=== PATIENT | female | born 1965 | race Caucasian/White ===

== ENCOUNTER → 2017-10-21 07:07 | Outpatient (CLI) | payer OTHER, SELFPAY ==
--- NOTE | 2017-10-21 07:26 | BI_ITS ---
MAMMOGRAPHY - BILATERAL SCREENING REASON FOR EXAM: Female, 51 years old. Routine annual screening examination. PERTINENT HISTORY: Grandmother with breast cancer. Aunt with breast cancer. History of prior bilateral breast reduction. TECHNIQUE: Digital bilateral breast zechariah (3D mammographic acquisition) in the CC and MLO projections. 2-D mediolateral oblique (MLO) and craniocaudad (CC) views of both breasts were obtained. CAD: Full Field Digital Mammography with Computer Added Detection was performed. COMPARISON: Comparison is made with prior study dated September 09, 2016. FINDINGS: Breast Composition: The breasts are heterogeneously dense, which may obscure small masses. There are no dominant masses or suspicious calcifications. Stable benign-appearing bilateral axillary lymph nodes. No other significant abnormalities are identified. There has been no significant change since the prior study. BI/SCREENING MAMM (CAD), BILAT IMPRESSION: Stable bilateral screening mammogram. Yearly follow-up mammogram recommended. (A) ASSESSMENT CATEGORY: BIRADS Category 2: Benign. A letter regarding these results will be sent to the patient by the facility within 30 days. Approximately 10% of breast cancers are not detected by mammography. A normal mammogram should not delay biopsy of a clinically suspicious abnormality. [id number] Electronically Signed: Deepak Roche MD at 8:21 EDT Tel [phone], Service support ,
== END ==
PROVIDERS: Family Provider Family Medicine; PCP Family Medicine
DX: Z12.31 Encounter for screening mammogram for malignant neoplasm of breast (principal)
CPT/HCPCS: 77063; 77067

== ENCOUNTER → 2018-02-10 09:44 | Outpatient (CLI) | payer OTHER, SELFPAY ==
[2018-02-10 12:25] LABS: Basophil# 0.07 X10^3/uL; Eosinophil# 0.22 X10^3/uL; Eosinophils% 3.2 % (0-5); Hematocrit 39.1 % (37-47); Hemoglobin 12.7 g/dl (12.0-15.0); Lymphocyte % 27.2 % (19-41); Mean Corp Hgb Conc 32.5 g/gl (32-36); Mean Corpuscular Hgb 29.1 pg (27.0-32.0); Mean Corpuscular Volume 89.5 fL (81-99); Mean Platelet Vol. 12.2 fl (6.2-12.0); Monocyte# 0.73 X10^3/uL; Monocyte% 10.5 % (0-10); Neutrophil # 4.04 X10^3/uL (2.7-7.7); Neutrophil % 57.8 % (47-70); Platelet Count 246 K/mm3 (150-450); RBC Distribution Width CV 12.9 % (11.6-14.6); RBC Distribution Width SD 41.9 fl (35.1-43.9); Red Blood Count 4.37 M/mm3 (4.2-5.4)
[2018-02-10 12:39] LABS: POSITIVE COUNT NO; POSITIVE DIFFERENTIAL NO; POSITIVE MORPHOLOGY NO
[2018-02-10 12:59] LABS: ALB/GLOB Ratio 1.1 RATIO (0.9-2.4); AST(SGOT) 13 U/L (15-37); Alanine Aminotransfer ALT/SGPT 21 U/L (13-56); Albumin, Serum 3.8 g/dL (3.2-5.0); Alkaline Phosphatase 73 U/L (45-117); Anion Gap 7 (5-15); BUN 20 mg/dL (7-18); BUN/Creat Ratio 25.2 RATIO (10-20); Calcium,Total 8.8 mg/dL (8.5-10.1); Chloride 103 mmol/L (98-107); Cholesterol 193 mg/dL (200); EST Glomerular Filtration Rate 81 mL/min (>60); Est Glom Filt Rate - Afr Amer 98 mL/min (>60); Globulin 3.5 g/dL (2.2-4.2); Glucose 77 mg/dL (74-106); High Density Lipoprotein 74 mg/dL; Potassium 4.5 mmol/L (3.5-5.1); Protein, Total 7.3 g/dL (6.4-8.2); Sodium Level 138 mmol/L (136-145); T4 Free Direct 0.95 ng/dL (0.76-1.46); Thyroid Stim Hormone (TSH) 1.67 uIU/mL (0.358-3.74); Triglycerides 88 mg/dL; Very Low Density Lipoprotein 18 mg/dL (5-40)
== END ==
PROVIDERS: Family Provider Family Medicine; PCP Family Medicine; Referring Provider Family Medicine; Visit Provider Family Medicine
DX: Z00.00 Encounter for general adult medical examination without abnormal findings (principal); F41.9 Anxiety disorder, unspecified
CPT/HCPCS: 36415; 80053; 80061; 84439; 84443; 85025

== ENCOUNTER → 2019-02-23 | Outpatient (CLI) | payer OTHER, SELFPAY ==
--- NOTE | 2019-02-23 08:24 | BI_ITS ---
MAMMOGRAPHY - BILATERAL SCREENING REASON FOR EXAM: Female, 53 years old. Routine annual screening examination. PERTINENT HISTORY: Grandmother with breast cancer. Aunt with breast cancer. History of prior bilateral breast reduction surgery. TECHNIQUE: Digital bilateral breast charissa (3D mammographic acquisition) in the CC and MLO projections. 2-D mediolateral oblique (MLO) and craniocaudad (CC) views of both breasts were obtained. CAD: Full Field Digital Mammography with Computer Added Detection was performed. COMPARISON: Comparison is made with prior examination of October 21, 2017 and September 09, 2016. FINDINGS: Breast Composition: The breasts are heterogeneously dense, which may obscure small masses. There are no dominant masses or suspicious calcifications. Stable benign-appearing bilateral axillary lymph nodes. No other significant abnormalities are identified. There has been no significant change since the prior study. BI/SCREEN MAMM (CAD) W/CHARISSA BILAT IMPRESSION: Stable bilateral screening mammogram. Yearly follow-up mammogram recommended. (A) ASSESSMENT CATEGORY: BIRADS Category 2: Benign. A letter regarding these results will be sent to the patient by the facility within 30 days. Approximately 10% of breast cancers are not detected by mammography. A normal mammogram should not delay biopsy of a clinically suspicious abnormality. [id number] Electronically Signed: Deepak Roche, at 9:37 EST , Service support ,
== END | disposition home or self-care (01) ==
PROVIDERS: Family Provider Family Medicine; PCP Family Medicine
DX: Z12.31 Encounter for screening mammogram for malignant neoplasm of breast (principal)
CPT/HCPCS: 77063; 77067

== ENCOUNTER → 2019-09-18 | Outpatient (CLI) | payer OTHER, SELFPAY ==
[2019-09-18 10:00] LABS: Absolute Lymphocyte Count 1.63 X10^3/uL (0.83-4.51); Absolute Neutrophil Count 2.4 X10^3/uL (2.0-7.7); Basophil# 0.04 X10^3/uL; Basophil% 0.8 % (0-1); Eosinophil# 0.11 X10^3/uL; Eosinophils% 2.3 % (0-5); Hematocrit 40.9 % (37-47); Hemoglobin 12.6 g/dL (12.0-15.0); Lymphocyte # 1.63 X10^3/ul (4.0); Lymphocyte % 34.2 % (19-41); Mean Corp Hgb Conc 30.8 g/dL (32-36); Mean Corpuscular Hgb 28.8 pg (27.0-32.0); Mean Corpuscular Volume 93.6 fL (81-99); Mean Platelet Vol. 11.2 fl (6.2-12.0); Monocyte# 0.58 X10^3/uL; Monocyte% 12.2 % (0-10); NRBC Flagged by Analyzer 0 % (0-5); Neutrophil # 2.38 X10^3/uL (2.7-7.7); Neutrophil % 50.1 % (47-70); Platelet Count 203 K/mm3 (150-450); RBC Distribution Width CV 12.7 % (11.6-14.6); RBC Distribution Width SD 43.5 fl (35.1-43.9); Red Blood Count 4.37 M/mm3 (4.2-5.4); White Blood Count 4.8 K/mm3 (4.4-11.0)
[2019-09-18 10:41] LABS: AST(SGOT) 14 U/L (15-37); Alanine Aminotransfer ALT/SGPT 25 U/L (13-56); Albumin, Serum 3.8 g/dL (3.2-5.0); Alkaline Phosphatase 97 U/L (45-117); Anion Gap 6 (5-15); BUN 21 mg/dL (7-18); BUN/Creat Ratio 27.7 RATIO (10-20); Chloride 104 mmol/L (98-107); Cholesterol 199 mg/dL (200); Creatinine, Serum 0.76 mg/dL (0.55-1.02); EST Glomerular Filtration Rate 85 mL/min (>60); Est Glom Filt Rate - Afr Amer 103 mL/min (>60); Ferritin 22 ng/mL (8-252); Globulin 3.7 g/dL (2.2-4.2); Glucose 82 mg/dL (74-106); High Density Lipoprotein 69 mg/dL; Iron 40 ug/dL (50-170); Potassium 4.1 mmol/L (3.5-5.1); Protein, Total 7.5 g/dL (6.4-8.2); Sodium Level 139 mmol/L (136-145); Triglycerides 73 mg/dL; Very Low Density Lipoprotein 15 mg/dL (5-40)
[2019-09-19 12:18] LABS: ANTINUCLEAR ANTIBODIES DIRECT Negative (Negative)
== END | disposition home or self-care (01) ==
LOC: MTLAB 08:12
PROVIDERS: PCP Family Medicine; Referring Provider Family Medicine; Visit Provider Family Medicine
DX: Z00.00 Encounter for general adult medical examination without abnormal findings (principal); L65.9 Nonscarring hair loss, unspecified; R53.83 Other fatigue; Z98.890 Other specified postprocedural states
CPT/HCPCS: 36415; 80053; 80061; 82728; 83540; 84439; 84443; 85025; 86038; 86225; 86235

== ENCOUNTER → 2020-05-23 07:58 | Outpatient (CLI) | payer OTHER, SELFPAY ==
--- NOTE | 2020-05-23 08:26 | BI_ITS ---
MAMMOGRAPHY - BILATERAL SCREENING REASON FOR EXAM: Female, 54 years old. Routine annual screening examination. PERTINENT HISTORY: Grandmother with breast cancer. Aunts with breast cancer. History of prior bilateral breast reduction surgery. TECHNIQUE: Digital bilateral breast charissa (3D mammographic acquisition) in the CC and MLO projections. 2-D mediolateral oblique (MLO) and craniocaudad (CC) views of both breasts were obtained. CAD: Full Field Digital Mammography with Computer Added Detection was performed. COMPARISON: Comparison is made with prior study dated 02/23/2019 and 10/21/2017. FINDINGS: Breast Composition: The breasts are heterogeneously dense, which may obscure small masses. There are no dominant masses or suspicious calcifications. Stable benign-appearing bilateral axillary lymph nodes. No other significant abnormalities are identified. There has been no significant change since the prior study. BI/SCRN MAMM (CAD)W/CHARISSA BILAT IMPRESSION: Stable bilateral screening mammogram. Yearly follow-up mammogram recommended. (A) ASSESSMENT CATEGORY: BIRADS Category 2: Benign. A letter regarding these results will be sent to the patient by the facility within 30 days. Approximately 10% of breast cancers are not detected by mammography. A normal mammogram should not delay biopsy of a clinically suspicious abnormality. [id number] Electronically Signed: Deepak Roche MD at 11:02 EST , Service support ,
== END ==
PROVIDERS: PCP Family Medicine
DX: Z12.31 Encounter for screening mammogram for malignant neoplasm of breast (principal)
CPT/HCPCS: 77063; 77067

== ENCOUNTER → 2021-07-10 08:25 | Outpatient (CLI) | payer OTHER, SELFPAY ==
--- NOTE | 2021-07-10 08:27 | BI_ITS ---
MAMMOGRAPHY - BILATERAL SCREENING REASON FOR EXAM: Female, 55 years old. Routine annual screening examination. PERTINENT HISTORY: Grandmother with breast cancer. Aunts with breast cancer. History of prior bilateral breast reduction surgery. TECHNIQUE: Digital bilateral breast charissa (3D mammographic acquisition) in the CC and MLO projections. 2-D mediolateral oblique (MLO) and craniocaudad (CC) views of both breasts were obtained. CAD: Full Field Digital Mammography with Computer Added Detection was performed. COMPARISON: Comparison is made with prior study dated 05/23/2020 and 02/23/2019. FINDINGS: Breast Composition: There are scattered areas of fibroglandular density. There are no dominant masses or suspicious calcifications. Stable small benign-appearing bilateral axillary lymph nodes. No other significant abnormalities are identified. There has been no significant change since the prior study. BI/SCRN MAMM (CAD)W/CHARISSA BILAT IMPRESSION: Stable bilateral screening mammogram. Yearly follow-up mammogram recommended. (A) ASSESSMENT CATEGORY: BIRADS Category 2: Benign. A letter regarding these results will be sent to the patient by the facility within 30 days. Approximately 10% of breast cancers are not detected by mammography. A normal mammogram should not delay biopsy of a clinically suspicious abnormality. [id number] Electronically Signed: Deepak Roche MD at 9:19 EDT ,
== END ==
PROVIDERS: PCP Family Medicine
DX: Z12.31 Encounter for screening mammogram for malignant neoplasm of breast (principal)
CPT/HCPCS: 77063; 77067

== ENCOUNTER → 2021-11-26 | Outpatient (CLI) | payer OTHER, SELFPAY ==
[2021-11-26 16:08] LABS: Bacteria 0 SEEN /hpf (None Seen); Mucous, Urine 0 SEEN /hpf (<or=2+)
[2021-11-26 16:11] LABS: Color, Urine Yellow (Yellow); Glucose, Dipstick Normal (Normal); Ketone-Dipstick Negative (Negative); Leukocyte Esterase-Dipstick 500 /ul (Negative); Nitrite-Dipstick Negative (Negative); Occult Blood-Urine 25 /ul (Negative); Protein-Dipstick Negative (Negative); Urine Bilirubin Dipstick Negative (Negative); Urine Clarity Clear (Clear); Urine Urobilinogen Normal (Normal)
[2021-11-26 16:32] LABS: Red Blood Cells-Urine 5-10 SEEN /hpf (0-5); Squamous Epithelial Cells - UA 0-5 SEEN /hpf (5-10); White Blood Cells 10-25 SEEN /hpf (0-5)
== END | disposition home or self-care (01) ==
LOC: LABSPEC 16:04
PROVIDERS: PCP Family Medicine; Visit Provider Physician Assistant
DX: R34 Anuria and oliguria (principal)
CPT/HCPCS: 81001; 87077; 87086; 87088; 87186

== ENCOUNTER → 2022-06-14 | Outpatient (CLI) | payer OTHER, SELFPAY ==
[2022-06-14 17:03] LABS: Mucous, Urine 0 SEEN /hpf (<or=2+)
[2022-06-14 17:43] LABS: Color, Urine Yellow (Yellow); Glucose, Dipstick Normal (Normal); Ketone-Dipstick Negative (Negative); Leukocyte Esterase-Dipstick 100 /ul (Negative); Nitrite-Dipstick Negative (Negative); Occult Blood-Urine 25 /ul (Negative); Protein-Dipstick 15 mg/dl (Negative); Specific Gravity, Urine 1.025 (1.002-1.030); Urine Bilirubin Dipstick Negative (Negative); Urine Clarity Clear (Clear); Urine Urobilinogen Normal (Normal)
[2022-06-14 17:54] LABS: Bacteria 1+ /hpf (None Seen); Red Blood Cells-Urine 0-5 SEEN /hpf (0-5); Squamous Epithelial Cells - UA 0-5 SEEN /hpf (5-10); White Blood Cells 10-25 SEEN /hpf (0-5)
== END | disposition home or self-care (01) ==
PROVIDERS: PCP Family Medicine; Visit Provider Physician Assistant
DX: R35.0 Frequency of micturition (principal); R30.0 Dysuria
CPT/HCPCS: 81001; 87077; 87086; 87088; 87186

== ENCOUNTER → 2022-07-23 | Outpatient (CLI) | payer OTHER, SELFPAY ==
--- NOTE | 2022-07-23 08:35 | BI_ITS ---
MAMMOGRAPHY - BILATERAL SCREENING 3-D TOMOSYNTHESIS REASON FOR EXAM: Female, 56 years old. Routine screening PERTINENT HISTORY: Grandmother and aunts with breast cancer.. TECHNIQUE: 2-D mammograms and 3-D Tomosynthesis of the breast (s) were performed. CAD was performed. COMPARISON: 02/23/2019 FINDINGS: The breast composition is composed of scattered fibroglandular density. Scattered benign calcifications are seen. No dense spiculated masses or suspicious microcalcifications are identified. No architectural distortion is identified. There is no skin thickening or retraction. There has been no significant change since the prior study. BI/SCRN MAMM (CAD)W/CHARISSA BILAT IMPRESSION: No mammographic signs of malignancy. Routine yearly mammograms recommended. ASSESSMENT CATEGORY: BIRADS Category 1: Negative. A letter regarding these results will be sent to the patient by the facility within 30 days. FOLLOW UP RECOMMENDATION: Yearly follow up mammogram recommended. (A) Approximately 10% of breast cancers are not detected by mammography. A normal mammogram should not delay biopsy of a clinically suspicious abnormality. Electronically Signed: Trace Mcdonough MD at 9:28 EDT ,
== END | disposition home or self-care (01) ==
LOC: OPBI 08:33
PROVIDERS: PCP Family Medicine
DX: Z12.31 Encounter for screening mammogram for malignant neoplasm of breast (principal)
CPT/HCPCS: 77063; 77067

== ENCOUNTER → 2022-12-09 | Outpatient (CLI) | payer OTHER, SELFPAY | END | disposition home or self-care (01) | PROVIDERS: PCP Family Medicine; Referring Provider Physician Assistant; Visit Provider Physician Assistant | DX: N39.0 Urinary tract infection, site not specified (principal) | CPT/HCPCS: 87086 ==

== ENCOUNTER → 2023-08-19 | Outpatient (CLI) | payer OTHER, SELFPAY ==
--- NOTE | 2023-08-19 08:38 | BI_ITS ---
MAMMOGRAPHY - BILATERAL SCREENING REASON FOR EXAM: Female, 57 years old. Routine annual screening examination. PERTINENT HISTORY: Grandmother with breast cancer. Aunt with breast cancer. History of prior left excisional breast biopsy and bilateral breast reduction surgery. TECHNIQUE: Digital bilateral breast charissa (3D mammographic acquisition) in the CC and MLO projections. 2-D mediolateral oblique (MLO) and craniocaudad (CC) views of both breasts were obtained. CAD: Full Field Digital Mammography with Computer Added Detection was performed. COMPARISON: Comparison is made with prior study dated July 23, 2022 and July 10, 2021. FINDINGS: Breast Composition: There are scattered areas of fibroglandular density. There are no dominant masses or suspicious calcifications. Stable calcified nodule in the deep upper medial portion of the left breast. Stable appearance of the bilateral axillary lymph nodes. No other significant abnormalities are identified. There has been no significant change since the prior study. BI/SCRN MAMM (CAD)W/CHARISSA BILAT IMPRESSION: Stable bilateral screening mammogram. Yearly follow-up mammogram recommended. (A) ASSESSMENT CATEGORY: BIRADS Category 2: Benign. A letter regarding these results will be sent to the patient by the facility within 30 days. Approximately 10% of breast cancers are not detected by mammography. A normal mammogram should not delay biopsy of a clinically suspicious abnormality. [id number] Electronically Signed: Deepak Roche MD at 10:18 EDT ,
== END | disposition home or self-care (01) ==
LOC: OPBI 08:33
PROVIDERS: PCP Family Medicine
DX: Z12.31 Encounter for screening mammogram for malignant neoplasm of breast (principal)
CPT/HCPCS: 77063; 77067

== ENCOUNTER → 2023-09-01 | Outpatient (CLI) | payer OTHER, SELFPAY ==
--- NOTE | 2023-09-01 08:36 | BD_ITS ---
STUDY: DUAL ENERGY X-RAY ABSORPTIOMETRY / DXA REASON FOR EXAM: Female, 57 years old. V76.12ScreeningBONE DENSITY REASON FOR EXAM TECHNIQUE: Bone Mineral Density (BMD) measurements of lumbar spine and bilateral hips were obtained. COMPARISON: None. FINDINGS: Lumbar Spine (L1-L4): g/cm2 (0.995) / T-score (-0.5) / Z-score (0.7) Findings are suggestive of normal bone density with a low fracture risk. Left Femur Total: g/cm2 (0.901) / T-score (-0.3) / Z-score (0.4) Left Femoral Neck: g/cm2 (0.690) / T-score (-1.4) / Z-score (-0.3) Right Femur Total: g/cm2 (0.907) / T-score (-0.3) / Z-score (0.5) Right Femoral Neck: g/cm2 (0.727) / T-score (-1.1) / Z-score (0.0) BD/Dexa Bone Density Study IMPRESSION: The patient is considered osteopenic as outlined below according to World Javon Organization (WHO) criteria with a low fracture risk. Reference Information: The T-score is the number of standard deviations above or below the standard which is normal for young adults at their peak bone mineral density. The World Health Organization (WHO) interprets the T-scores as follows: Above -1 Normal bone density Between -1 and -2.5 Osteopenia Equal to / or below -2.5 Osteoporosis As a practical clinical guideline, osteopenia may be graded as follows: Mild -1 through -1.5 Moderate -1.6 through -2.0 Severe -2.1 through -2.4 The Z-score is the number of standard deviations above or below age-matched controls. A Z-score of less than -1.5 would be considered abnormal. References: 1. NIH Osteoporosis and Related Bone Diseases www osteo.org 2. International Society for Clinical Densitometry www iscd.org 3. National Osteoporosis Foundation www nof.org Electronically Signed: Deepak Roche MD at 9:09 EDT ,
== END | disposition home or self-care (01) ==
LOC: OPBD 08:25
PROVIDERS: PCP Family Medicine
DX: Z13.820 Encounter for screening for osteoporosis (principal)
CPT/HCPCS: 77080

== ENCOUNTER → 2023-10-31 | Outpatient (CLI) | payer OTHER, SELFPAY | END | disposition home or self-care (01) | LOC: LABSPEC 15:44 | PROVIDERS: PCP Family Medicine; Referring Provider Physician Assistant; Visit Provider Physician Assistant | DX: N39.0 Urinary tract infection, site not specified (principal) | CPT/HCPCS: 87086; 87088; 87186 ==

== ENCOUNTER → 2023-11-29 | Outpatient (CLI) | payer OTHER, SELFPAY | END | disposition home or self-care (01) | LOC: LABSPEC 16:31 | PROVIDERS: PCP Family Medicine; Referring Provider Physician Assistant; Visit Provider Physician Assistant | DX: R39.9 Unspecified symptoms and signs involving the genitourinary system (principal) | CPT/HCPCS: 87077; 87086; 87088; 87186 ==

== ENCOUNTER → 2024-09-14 | Outpatient (CLI) | payer OTHER, SELFPAY ==
--- NOTE | 2024-09-14 10:09 | BI_ITS ---
EXAM: SCRN MAMM (CAD)W/CHARISSA BILAT 09/14/2024 CLINICAL HISTORY: F, Age 58 y/o , SCREENING TECHNIQUE: Bilateral screening digital breast tomosynthesis with 2D and 3D images. Computer aided detection. COMPARISON: Prior exam(s) dated 08/19/2023, 07/23/2022, 07/10/2021. FINDINGS: TISSUE DENSITY: The breast tissue is composed of scattered area of fibroglandular density. Bilateral Breast Mammographic Findings: No significant masses, calcifications or other abnormalities are identified. BI/SCRN MAMM (CAD)W/CHARISSA BILAT IMPRESSION: Right Breast: BIRADS 1 NEGATIVE. Left Breast: BIRADS 1 NEGATIVE. OVERALL FINAL ASSESSMENT: BIRADS 1 NEGATIVE. RECOMMENDATION: Routine annual follow-up in 1 Year A letter with findings and recommendations will be mailed to the patient. Reading Location: [id number]
== END | disposition home or self-care (01) ==
LOC: OPBI 10:05
PROVIDERS: PCP Family Medicine
DX: Z12.31 Encounter for screening mammogram for malignant neoplasm of breast (principal)
CPT/HCPCS: 77063; 77067

== ENCOUNTER → 2025-02-15 | Outpatient (CLI) | payer OTHER, SELFPAY ==
--- NOTE | 2025-02-15 15:41 | MRI_ITS ---
PROCEDURE: SPINE LUMBAR (ROUTINE) 02/15/2025 REASON FOR EXAM: LUMBAR RADICULOPATHY TECHNIQUE: Procedure Code: MRISPL Modality: MR Procedure: SPINE LUMBAR (ROUTINE) COMPARISON: None FINDINGS: Vertebrae: No fracture. No bone marrow edema. Alignment: Normal lumbar lordosis. Conus Medullaris: Terminates at L1. Normal signal L1-2: Normal L2-3: Normal L3-4: Mild, diffuse disc bulge is present that is slightly asymmetric to the left at the level of the foramen and extraforaminal region. Mild thickening of ligamentum flavum. Minimal facet hypertrophy. Mild exit foraminal narrowing on the left. Correlate with left L3 radiculopathy. L4-5: Disc desiccation is seen with moderate loss of disc height. Diffuse disc bulge. [id number] right facet hypertrophy. Minimal left facet hypertrophy. No central stenosis or exit foraminal narrowing. L5-S1: Disc desiccation is seen with mild loss of disc height. Posterior annular defect at the midline is 9 mm. No central stenosis or exit foraminal narrowing. MRI/Spine Lumbar (Routine) IMPRESSION: 1. Disc desiccation and moderate loss of disc height at L4/5. Disc desiccatio n and mild loss of disc height at L5/S1 with posterior annular defect. 2. Asymmetric disc bulge on the left at L3/4 with compromise of the left exit foramen. Correlate with left L3 radiculopathy. Reading Location: [id number]
--- OUTSIDE RECORDS SUMMARY | 2025-02-15 17:08 | XMS RPT_ITS | CCD ---
Author Organization [facility] CliniSypr Care Team Providers Care Product Support Specialist Name Role Phone Dr. Kristina Monsivais Primary Care Provider Dr. Kristina Monsivais Referring Provider [phone] MAIRA Shi Attending Provider [phone] Kristina Monsivais Primary Care Provider Dr. Kristina Monsivais Referring Provider [phone] MAIRA Shi Attending Provider [phone] MAIRA Sweeney Attending Provider Dr. Kristina Monsivais Primary Care Provider Dr. Kristina Monsivais Referring Provider [phone] MAIRA Shi Attending Provider [phone] FE COLIN MD Attending Tamicaab selvin MONSIVAIS DO, DR KRISTINA Badillo Primary Care Unavailab FE Newman MD Attending Tamicaab DR KRISTINA Sotelo DO Primary Care Unavailab Dr. Kristian Sotelo DO Primary Care Provider [phone] Preethi Sims Attending Provider Dr. Kristina Monsivais DO Referring Provider Dr. Kyaw Torres MD Attending Provider FE COLIN Attending Provider FE COLIN Referring Provider Dr. Kristina Monsivais DO Primary Care Physician FE COLIN Attending Physician Dr. Kristina Monsivais DO Referring Provider [phone] Nikhil LAST PULLER-CJesse Attending Physician [phone] Dr. Kristina Monsivais DO Primary Care Physician Tr Shi Attending Physician Jesse Tejeda NP Attending Unavailable Kristina Monsivais Referring Unavailable Kristina Monsivais Primary Care Unavailable Kristina Monsivais Primary Care Unavailable Tr Shi Attending Unavailable Kristina Monsivais Referring Unavailable Tr Shi Attending Unavailable Loi, Kristina Referring Unavailable Loi, Kristina Primary Care Unavailable Kristina Monsivais Attending Unavailable Loi, Kristina Referring Unavailable Loi, Kristina Primary Care Unavailable GLORIA KENDRICK Attending Unavailable GLORIA KENDRICK Referring Unavailable Loi, Kristina Primary Care Unavailable Kyaw Torres Attending Unavailable Loi, Kristina Referring Unavailable Kristina Monsivais Primary Care Unavailable Loi, Kristina Primary Care Unavailable Preethi Toledo Attending Unavailable Allergies Allergy Classification Reported Allergen(s) Allergy Type Date of Onset Reaction(s) Facility (6 sources) Sulfonamides (Antibiotic) Allergy to substance 3 [facility] (1 source) Sulfonamides (Antibiotic) Drug allergy (disorder) 5 [facility] Repository Medications Current Medications Medication Drug Class(es) Dates Sig (Normalized) Sig (Original) LORazepam 1 mg oral tablet (6 sources) Benzodiazepine Start: 12-11-2021 take 1 tablet by mouth at bedtime as needed Multivitamin preparation (2 sources) Start: 12-11-2021 take 1 tablet by mouth once daily Multivitamin Active 1 TABLET PO DAILY December 11, 2021 12:00am Multivitamin tablet (4 sources) Start: 12-11-2021 Start: 12-11-2021 Multivitamin t ablet Active 1 {tbl} PO DAILY December 11, 2021 12:00am Complies with drug therapy Start: 12-11-2021 Multivitamin t ablet Active 1 {tbl} PO DAILY December 11, 2021 12:00am Tirzepatide (6 sources) Start: 12-11-2021 Start: 12-11-2021 Tirzepatide (M orin) 5 mg/0.5 mL pen injector Active 5 mg SC EVERY WEEK 6.5 90 3 December 11, 2021 2:23pm Complies with drug therapy Start: 12-11-2021 End: 12-11-2021 Tirzepatide (Mounjaro) 5 mg/ 0.5 mL pen injector Discontinued 5 mg SC EVERY WEEK 2 1 December 11, 2021 12:00am December 11, 2021 2:23pm Tirzepatide (Mounjaro) 5 mg/ 0.5 mL pen injector (6 sources) Start: 12-11-2021 Tirzepatide (M ounjaro) 5 mg/0.5 mL pen injector Active 5 mg SC EVERY WEEK 6.5 90 December 11, 2021 2:23pm Start: 12-11-2021 Tirzepatide (M ounjaro) 5 mg/0.5 mL pen injector Active 5 MG SC EVERY WEEK 6.5 90 December 11, 2021 2:23pm Start: 12-11-2021 End: 12-11-2021 Tirzepatide (Mounjaro) 5 mg/ 0.5 mL pen injector Discontinued 5 mg SC EVERY WEEK 2 December 11, 2021 12:00am December 11, 2021 2:23pm Start: 12-11-2021 End: 12-11-2021 Tirzepatide (Mounjaro) 5 mg/ 0.5 mL pen injector Discontinued 5 MG SC EVERY WEEK 2 December 11, 2021 12:00am December 11, 2021 2:23pm Vitamin B Complex (B Complex -Vitamin B12) tablet (6 sources) Start: 12-11-2021 Start: 12-11-2021 Vitamin B Comp abelardo (B Complex-Vitamin B12) tablet Active 1 {tbl} PO DAILY December 11, 2021 12:00am Complies with drug therapy Start: 12-11-2021 Vitamin B Comp abelardo (B Complex-Vitamin B12) tablet Active 1 {tbl} PO DAILY December 11, 2021 12:00am Start: 12-11-2021 take 1 tablet by trinity th once daily Vitamin B Complex (B Complex-Vitamin B12) tablet Active 1 TABLET PO DAILY December 11, 2021 12:00am Completed/Discontinued Medications Medication Drug Class(es) Dates Sig (Normalized) Sig (Original) amoxicillin 500 mg oral capsule (6 sources) Penicillin-class Antibacterial Start: 05-11-2022 End: 05-18-2022 take 1 capsule by mouth three times daily Amoxicillin 500 mg capsule Discontinued 500 mg PO THREE TIMES A DAY 30 10 0 May 11, 2022 1:00am May 20, 2022 1:00am May 18, 2022 3:54pm amoxicillin 875 mg / clavulanate 125 mg oral tablet (13 sources) Penicillin-class Antibacterial Start: 05-18-2022 End: 06-14-2022 Amoxicillin-Pot Clavulanate 875-125 mg tablet Discontinued 1 {tbl} PO Q12H 14 0 May 18, 2022 1:00am June 14, 2022 3:52pm Start: 05-18-2022 End: 06-14-2022 take 1 tablet by mouth every twelve hours Amoxicillin-Pot Clavulanate Discontinued 1 TABLET PO Q12H 14 May 18, 2022 1:00am June 14, 2022 3:52pm Start: 04-30-2021 End: 09-29-2021 Amoxicillin-Pot Clavulanate 875-125 mg tablet Discontinued 1 {tbl} PO Q12H 14 0 April 30, 2021 1:00am September 29, 2021 6:31am Start: 04-30-2021 End: 09-29-2021 take 1 tablet by mouth every twelve hours Amoxicillin-Pot Clavulanate Discontinued 1 TABLET PO Q12H 14 April 30, 2021 1:00am September 29, 2021 6:31am cefdinir 300 mg oral capsule (6 sources) Cephalosporin Antibacterial Start: 06-01-2022 End: 06-14-2022 take 1 capsule by mouth every twelve hours Cefdinir 300 mg capsule Discontinued 300 mg PO Q12H 14 June 01, 2022 1:00am June 14, 2022 3:52pm cetirizine hydrochloride 10 mg oral capsule (6 sources) Histamine-1 Receptor Antagonist Start: 12-11-2021 End: 06-14-2022 take 1 capsule by mouth once daily as needed Cetirizine (Zyrtec) 10 mg capsule Discontinued 10 mg PO DAILY as needed December 11, 2021 12:00am June 14, 2022 3:52pm ciclopirox 80 mg/ml topical solution (4 sources) Start: 04-23-2024 End: 05-21-2024 Ciclopirox 8 % solution Discontinued 1 NMA TOPICAL AT BEDTIME 6.6 28 0 April 23, 2024 1:00am May 20, 2024 1:00am May 21, 2024 1:10am apply to toenails nightly cyclobenzaprine hydrochloride 10 mg oral tablet (3 sources) Muscle Relaxant Start: 01-06-2025 End: 01-11-2025 take 1 tablet by mouth three times daily as needed for muscle spasms Cyclobenzaprine 10 mg tablet Discontinued 10 mg PO THREE TIMES A DAY as needed for muscle spasm 15 5 0 January 06, 2025 12:00am January 10, 2025 12:00am January 11, 2025 12:12am desoximetasone 0.5 mg/ml topical cream (7 sources) Corticosteroid Start: 09-26-2018 End: 11-26-2021 Desoximetasone (Topicort) 0.05 % cream Discontinued 1 NMA TOPICAL DAILY as needed for skin irritation 60 0 September 26, 2018 12:00am November 26, 2021 9:21am fluticasone propionate 0.05 mg/actuat metered dose nasal spray (6 sources) Corticosteroid Start: 06-03-2022 End: 01-06-2025 take 50 ug nasal route once daily Fluticasone Propionate (Allergy Relief (Fluticasone)) 50 mcg/actuation spray,suspension Discontinued 1 NMA INTRANASAL DAILY 16 0 June 03, 2022 1:00am January 06, 2025 8:28am administer into each nostril Start: 06-03-2022 take 1 spray(s) nasa l route once daily Fluticasone Propionate (Allergy Relief (Fluticasone)) 50 mcg/actuation spray,suspension Active 1 SPRAY INTRANASAL DAILY June 03, 2022 1:00am administer into each nostril 12 hr guaiFENesin 1200 mg extended release oral tablet (7 sources) Start: 09-29-2021 End: 11-26-2021 take 1 tablet by mouth twice daily as needed for congestion Guaifenesin 1,200 mg tablet extended release 12hr Discontinued 1200 mg PO TWICE A DAY as needed for congestion 28 0 September 29, 2021 12:00am November 26, 2021 9:21am methylPREDNISolone 4 mg oral tablet (11 sources) Corticosteroid Start: 11-29-2023 End: 05-29-2024 Methylprednisolone 4 mg tablets,dose pack Discontinued 0 PO per package directions November 29, 2023 12:00am May 29, 2024 10:24am PO PER PKG DIR Start: 03-02-2021 End: 09-29-2021 Methylprednisolone 4 mg tabl ets,dose pack Discontinued 0 PO per package directions March 02, 2021 1:00am September 29, 2021 6:32am PO PER PKG DIR Start: 03-02-2021 End: 09-29-2021 Methylprednisolone Discontin ued 0 PO per package directions March 02, 2021 1:00am September 29, 2021 6:32am PO PER PKG DIR Nirmatrelvir-Ritonavir (7 sources) Start: 09-29-2021 End: 11-26-2021 Nirmatrelvir-Ritonavir (Paxl ovid (Eua)) 300 mg (150 mg x 2)-100 mg tablet Discontinued 0 PO .COMPLEX 30 September 29, 2021 12:00am November 26, 2021 9:21am take TWO 150 mg tablets of nirmatrelvir with ONE 100 mg tablet of ritonavir twice daily for 5 days PO Start: 09-29-2021 End: 11-26-2021 Nirmatrelvir-Ritonavir (Paxl ovid (Eua)) 300 mg (150 mg x 2)-100 mg tablet Discontinued 0 PO .COMPLEX 30 September 29, 2021 12:00am November 26, 2021 9:21am take TWO 150 mg tablets of nirmatrelvir with ONE 100 mg tablet of ritonavir twice daily for 5 days PO nitrofurantoin, macrocrystals 100 mg oral capsule (4 sources) Nitrofuran Antibacterial Start: 10-31-2023 End: 10-31-2023 take 1 capsule by mouth every twelve hours at mealtime Nitrofurantoin Macrocrystal 100 mg capsule Discontinued 100 mg PO Q12H 10 0 October 31, 2023 12:00am October 31, 2023 8:09am must administer with a meal/food nitrofurantoin, macrocrystals 25 mg / nitrofurantoin, monohydrate 75 mg oral capsule (20 sources) Nitrofuran Antibacterial Start: 11-29-2023 End: 12-04-2023 take 1 capsule by mouth every twelve hours at mealtime Nitrofurantoin Monohyd/M-Cryst (Macrobid) 100 mg capsule Discontinued 100 mg PO Q12H 10 5 0 November 29, 2023 12:00am December 03, 2023 12:00am December 04, 2023 12:04am must administer with a meal/food Start: 12-09-2022 End: 12-14-2022 take 1 capsule by mouth every twelve hours at mealtime Nitrofurantoin Monohyd/M-Cryst (Macrobid) 100 mg capsule Discontinued 100 mg PO Q12H 10 5 0 December 09, 2022 12:00am December 13, 2022 12:00am December 14, 2022 12:03am must administer with a meal/food Start: 06-14-2022 End: 06-19-2022 take 1 capsule by mouth every twelve hours at mealtime Nitrofurantoin Monohyd/M-Cryst (Macrobid) 100 mg capsule Discontinued 100 mg PO Q12H 10 5 0 June 14, 2022 1:00am June 18, 2022 1:00am June 19, 2022 1:12am must administer with a meal/food Start: 11-26-2021 End: 2021 take 1 capsule by mouth every twelve hours at mealtime Nitrofurantoin Monohyd/M-Cryst (Macrobid) 100 mg capsule Discontinued 100 mg PO Q12H 10 5 0 November 26, 2021 12:00am November 30, 2021 12:00am 2021 12:04am must administer with a meal/food predniSONE 20 mg oral tablet (3 sources) Start: 01-06-2025 End: 01-11-2025 take 2 tablets by mouth once daily Prednisone 20 mg tablet Discontinued 40 mg PO daily 10 5 0 January 06, 2025 12:00am January 10, 2025 12:00am January 11, 2025 12:12am tobramycin 3 mg/ml ophthalmic solution (7 sources) Aminoglycoside Antibacterial Start: 07-28-2020 End: 09-29-2021 take 0.3 drop(s) into the eye(s) every three hours Tobramycin (Tobrex) 0.3 % drops Discontinued 1 NMA OPHTHALMIC Q3H 5 0 July 28, 2020 12:00am September 29, 2021 6:31am Start: 07-28-2020 End: 09-29-2021 take 0.3 drop(s) into the eye(s) every three hours Tobramycin (Tobrex) 0.3 % drops Discontinued 1 DRP OPHTHALMIC Q3H 5 July 28, 2020 12:00am September 29, 2021 6:31am Problems Active Problems Problem Classification Problem Date Documented Da te Episodic/Chronic Allergic reactions (4 sources) Contact dermatitis; Translations: [Unspecified contact dermatitis, unspecified cause] 11-29-2023 Episodic Fracture of lower limb (8 sources) Closed fracture of phalanx of foot; Translations: [Displaced unspecified fracture of right lesser toe(s), initial encounter for closed fracture] 11-07-2023 Episodic Genitourinary symptoms and ill-defined conditions (20 sources) Oliguria; Translations: [Anuria and oliguria] 11-26-2021 Episodic Inflammation; infection of eye (except that caused by tuberculosis or sexually transmitteddisease) (11 sources) Contact dermatitis of eyelid; Translations: [Allergic dermatitis of unspecified eye, unspecified eyelid] 03-02-2021 Episodic Other connective tissue disease (5 sources) Infrapatellar bursitis of left knee; Translations: [Other bursitis of knee, left knee] 05-29-2024 Episodic Other ear and sense organ disorders (6 sources) Hearing loss of left ear; Translations: [Unspecified hearing loss, left ear] 06-09-2022 Chronic Other gastrointestinal disorders (6 sources) History of bypass of stomach; Translations: [Bariatric surgery status] 12-15-2021 Episodic Other injuries and conditions due to external causes (4 sources) Injury of toe of right foot; Translations: [Unspecified injury of right foot, initial encounter] 11-07-2023 Episodic Other injuries and conditions due to external causes (4 sources) Injury of right ankle; Translations: [Unspecified injury of right ankle, initial encounter] 02-21-2023 Episodic Other upper respiratory infections (14 sources) Acute sinusitis; Translations: [Acute sinusitis, unspecified] 05-11-2022 Episodic Otitis media and related conditions (13 sources) Acute left otitis media; Translations: [Otitis media, unspecified, left ear] 05-18-2022 Episodic Residual codes; unclassified (2 sources) Pain; Translations: [Pain, unspecified] 03-15-2022 Episodic Residual codes; unclassified (4 sources) Pain, unspecified; Translations: [Pain aggravated by walking] 03-15-2022 Episodic Spondylosis; intervertebral disc disorders; other back problems (14 sources) Sciatica; Translations: [Sciatica, unspecified side] Onset: 02-10-2025 04-16-2021 Episodic Sprains and strains (7 sources) Sprain of ankle; Translations: [Sprain of unspecified ligament of right ankle, initial encounter] 03-15-2022 Episodic Superficial injury; contusion (10 sources) Abrasion of left cornea; Translations: [Injury of conjunctiva and corneal abrasion without foreign body, left eye, initial encounter] Onset: 01-15-2025 07-28-2020 Episodic Urinary tract infections (17 sources) Acute cystitis; Translations: [Acute cystitis without hematuria] Episodic Past or Other Problems Problem Classification Problem Date Documented Da te Episodic/Chronic Other non-traumatic joint disorders (5 sources) Pain in left knee; Translations: [Left knee pain] Onset: 05-29-2024 05-29-2024 Episodic Other screening for suspected conditions (not mental disorders or infectious disease) (5 sources) Encounter for screening for malignant neoplasm of cervix; Translations: [Encounter for screening mammogram for malignant neoplasm of breast] Onset: 08-05-2023 Episodic Results Test Name Value Interpretation Reference Range Facility Knee 3 Viewson 01-15-2025 Knee 3 Views [facility] Imaging Services [address] [place] [address] [id number] Knee 3 Views MR#: [id number] Acct: [id number] Name: NILAY HENSON Rep #: [id number] : 1965 F 59 From: Deepak rogers MD PCP: Dr. Kristina Monsivais, Status: DEP AMB Study: Knee 3 Views Date of Exam: 01/15/25 Exam# [id number] Ordering Dr: Tr Roman PA PROCEDURE: KNEE 3 VIEWS 01/15/2025 REASON FOR EXAM: LEFT KNEE PAIN/CONTUSION, ANTERIOR TENDERNESS TECHNIQUE: Procedure Code: RADPAT Modality: DX Procedure: KNEE 3 VIEWS Laterality: Left knee. COMPARISON: None FINDINGS: Bones: No fracture. No suspicious bone lesion. Joints: Normal alignment. Effusion: No effusion. Soft tissues: Soft tissues are unremarkable. Other: RAD/Knee 3 Views IMPRESSION: NO EFFUSION ACUTE FRACTURE OR DISLOCATION. Reading Location: [id number] CC: MAIRA Washburn; Dr. Kristina Monsivais DO [employer] Instructor: Signed Normal [facility] Office Visit Reporton [address] [facility] [address] [place] [address] OFFICE VISIT Date of Service: 01/15/25 MR#: [id number] Acct: [id number] Patient: NILAY HENSON Rep #: [id number] : 1965 Provider: MAIRA Washburn Age/Sex: 59/F Location: [facility] Status: Signed Intake Vital Signs 01/06/25 08:25 Height 1.6 m Weight: 64.41 kg BMI 25.1 BP 132/74 H Blood Pressure Location Lt brachial Position Sitting Pulse 63 Pulse Source Monitor Temp 98.1 F Temp Source Oral Pulse Oximetry (%) 98 Oxygen Delivery Method room air Intake Visit Reasons: left knee injury Chief Complaint: L knee pain Allergies Sulfa (Sulfonamide Antibiotics) Allergy (Unknown, Verified 01/06/25 08:28) Hives [facility] Medical History Acute maxillary sinusitis, unspecified Anxiety Insomnia Seasonal allergies Surgical History History of gastric bypass Family History Grandfather Alcoholism Mother Anemia Other Cancer Social History Smoking Status: Never smoker alcohol intake: current alcohol intake frequency: other details: Socially substance use type: does not use what type of physical activity do you participate in: walking frequency: daily HPI HPI Chief Complaint: L knee pain Details: NILAY HENSON, is a 59 F who presents to the office today for L knee pain. She injured her L knee last . She struck the anterior knee against a wall. Since then she has had L anterior knee pain especially with weight bearing. She feels she has an abnormal gait due to the pain. She has mild swelling of the knee anteriorly. She has tried several OTCs with no improvement. She has full ROM and strength. She has no laxity. clicking or popping. ROS Const Constitutional: No chills, fatigue or fever(s) Musc Musculoskeletal: Positive for abnormal gait, joint pain and joint swelling; No deformity, limited range of motion, muscle weakness or stiffness Skin Skin: No redness, lesions or wounds Neuro Neurology: Positive for abnormal gait Endo Endocrine: No fatigue Exam Const General: cooperative, healthy appearing, comfortable, no acute distress, well developed and well groomed Nutritional Appearance: average body habitus and well nourished Orientation: alert, awake and oriented x3 HENMT Head: normocephalic and atraumatic Musc Other: L knee: mild generalized swelling of left knee. normal active and passive ROM and strength. tender to palpation over the tibial plateau to light palp. no crepitus. patella nontender. valgus and varus negative. negative anterior and posterior drawer. neg amanda. Coding Level of Care Code Off vis,est,level 2 Diagnoses Contusion of left knee S80.02XA Assessment and Plan Assessment and Plan (1) Contusion of left knee: Status: Acute Plan: xray obtained interpreted by radiology - no acute process. at this time recommended RICE therapy, bracing, nsaids prn pain. if no improvement 2 weeks can refer to ortho for further workup. Orders: Orders Knee 3 Views Today S80.02XA - Contusion of left knee, initial encounter 01/15/25 1406 Date Tr Shawigner Signature: Date (if applicable) CC: Normal [facility] Urgent Care Visit Reporton 0 01-06-2025 Urgent Care Visit Report [facility] [address], [address] [place] [address] OFFICE VISIT Date of Service: 01/06/25 MR#: [id number] Acct: [id number] Name: NILAY HENSON Rep #: [id number] : 1965 Provider: SARAH vaughan Age/Sex: 59/F Location: [facility] Status: Signed Intake Vital Signs 05/29/24 09:23 01/06/25 08:21 01/06/25 08:25 Height 5 ft 3 in 5 ft 3 in 5 ft 3 in Weight: 142 lb 142 lb BMI 25.1 25.1 BP 118/77 132/74 H Blood Pressure Location Lt brachial Lt brachial Position Sitting Sitting Pulse 65 63 Pulse Source Monitor Monitor Temp 98.1 F 98.1 F Temp Source Temporal Oral Pulse Oximetry (%) 100 98 Oxygen Delivery Method room air Intake Visit Reasons: SCIATIC BACK PAIN Chief Complaint: Back Pain Accompanied by: Self Allergies Sulfa (Sulfonamide Antibiotics) Allergy (Unknown, Verified 01/06/25 08:28) Hives Medications ???Medication ???Instructions ???Recorded ???Confirmed ???Type lorazepam 1 mg tablet 1 mg PO QHS PRN 12/11/21 01/06/25 History multivitamin 1 tab PO DAILY 12/11/21 01/06/25 H istory tirzepatide 5 mg/0.5 mL 5 mg (0.5 mL) subcut QWEEK 90 days 12/11/21 01/06/25 Rx subcutaneous pen injector #6.5 mL (Ken) vitamin B complex (B 1 tab PO DAILY 12/11/21 01/06/25 H istory Complex-Vitamin B12 tablet) cyclobenzaprine 10 mg tablet 10 mg PO TID PRN muscle spasm 5 01/06/25 Rx days #15 tabs prednisone 20 mg tablet 40 mg (2 x 20 mg) PO QDAY 5 days 0 01/06/25 01/06/25 Rx #10 tabs Nurse's Note: Sciatic back pain. Started yesterday. Pain going down left side, burning. Taking Tylenol, relief. [facility] Medical History Acute maxillary sinusitis, unspecified Anxiety Insomnia Seasonal allergies Surgical History History of gastric bypass Family History Grandfather Alcoholism Mother Anemia Other Cancer Social History Smoking Status: Never smoker alcohol intake: current alcohol intake frequency: other details: Socially substance use type: does not use what type of physical activity do you participate in: walking frequency: daily HPI HPI Chief Complaint: Back Pain Details: NILAY HENSON, is a 59 F who presents to the office today for concerns regarding back pain that she attributes to sciatica related issues. This started yesterday. She states pain is rating down her left side is noted as a burning sensation. She has been taking Tylenol with minimal relief. She denies loss of bowel or bladder control. She denies any saddle anesthesia symptoms. ROS Const Constitutional: No chills, fatigue, fever(s) or weakness Resp Respiratory: No shortness of breath Cardio Cardiology: No chest pain with exertion Gastro GI: No incontinent of stools Genitourinary-Female : No urinary incontinence Musc Musculoskeletal: Positive for back pain; No muscle weakness, numbness (denies saddle anesthesia) or tingling (denies saddle anesthesia) Neuro Neurology: No weakness, numbness (denies saddle anesthesia) or tingling (denies saddle anesthesia) Endo Endocrine: No fatigue Vijay/Lymp Hematologic/Lymphati c: Positive for other (Denies cancer history or trauma. Denies IV drug use) Exam Const General: cooperative, healthy appearing, comfortable and no acute distress Chest Chest palpation inspection: normal inspection of the chest Resp Effort Inspection: normal respiratory effort, able to speak in complete sentences, symmetric chest movement, not labored, no retractions and no use of accessory muscles Auscultation: Bilateral: Clear to Auscultation Cardio Rate: other Rhythm: regular rhythm Heart Sounds: S1 normal and S2 normal Musc Musculoskeletal: No joint tenderness, joint redness, joint warmth, decreased range of motion, spinal deformity or muscle weakness Thoracic/Lumbar Spine: thoracic and lumbar spine normal to inspection, Lasegue's sign negative, no paraspinal tenderness, no thoracic spinal tenderness and no lumbar spinal tenderness Neuro General: patient alert, patient awake and patient oriented x3 Coding Level of Care Code Off vis,est,level 3 Diagnoses Acute left-sided low back pain with left-sided sciatica M54.42 Back pain location: low back pain Chronicity: acute Back pain laterality: left Sciatica presence: with sciatica Sciatica laterality: sciatica of left side Assessment and Plan Assessment and Plan (1) Back pain: Status: Acute Qualifiers: Back pain location: low back pain Chronicity: acute Back pain laterality: left Sciatica presence: with sciatica Sciatica laterality: sciatica of left side Quali (more content not included)... Normal [facility] Breast imaging reportOrdered By: Pooja Messer on 09-14-2024 Study report [facility] Services [address] [place] [address] SCRN MAMM (CAD)W/CHARISSA BILAT MR#: [id number] Acct: [id number] Name: NILAY HENSON Rep #: [id number] : 1965 F 58 From: Farrah Messer MD PCP: Dr. Kristina Monsivais, Status: REG CLI Study:SCRN MAMM (CAD)W/CHARISSA BILAT Date of Exa m: 09/14/24 Exam# [id number] Ordering Dr: FE MINOR EXAM: SCRN MAMM (CAD)W/CHARISSA BILAT 09/14/2024 CLINICAL HISTORY: F, Age 58 y/o , SCREENING TECHNIQUE: Bilateral screening digital breast tomosynthesis with 2D and 3D images. Computeraided detection. COMPARISON: Prior exam(s) dated 08/19/2023, 07/23/2022, 07/10/2021. FINDINGS: TISSUE DENSITY: The breast tissue is composed of scattered area of fibroglandular density. Bilateral Breast Mammographic Findings: No significant masses, calcifications or other abnormalities are identified. BI/SCRN MAMM (CAD)W/CHARISSA BILAT IMPRESSION: Right Breast: BIRADS 1 NEGATIVE. Left Breast: BIRADS 1 NEGATIVE. OVERALL FINAL ASSESSMENT: BIRADS 1 NEGATIVE. RECOMMENDATION: Routine annual follow-up in 1 Year A letter with findings and recommendations will be mailed to the patient. Reading Location: [id number] CC: Dr. Kristina Monsivais DO; FE COLIN ~ Commercial Horticulture Instructor: Signed [facility] SCRN MAMM (CAD)W/CHARISSA BILATo n 09-14-2024 SCRN MAMM (CAD)W/CHARISSA BILAT [facility] Imaging Services [address] [place] [address] SCRN MAMM (CAD)W/CHARISSA BILAT MR#: [id number] Acct: [id number] Name: NILAY HENSON Rep #: [id number] : 1965 F 58 From: Pooja Messer MD PCP: Dr. Kristina Monsivais DO Status: REG CLI Study: SCRN MAMM (CAD)W/CHARISSA BILAT Date of Exam: 10/03 Exam# [id number] Ordering Dr: FE COLIN EXAM: SCRN MAMM (CAD)W/CHARISSA BILAT 09/14/2024 CLINICAL HISTORY: F, Age 58 y/o , SCREENING TECHNIQUE: Bilateral screening digital breast tomosynthesis with 2D and 3D images. Computer aided detection. COMPARISON: Prior exam(s) dated 08/19/2023, 07/23/2022, 07/10/2021. FINDINGS: TISSUE DENSITY: The breast tissue is composed of scattered area of fibroglandular density. Bilateral Breast Mammographic Findings: No significant masses, calcifications or other abnormalities are identified. BI/SCRN MAMM (CAD)W/CHARISSA BILAT IMPRESSION: Right Breast: BIRADS 1 NEGATIVE. Left Breast: BIRADS 1 NEGATIVE. OVERALL FINAL ASSESSMENT: BIRADS 1 NEGATIVE. RECOMMENDATION: Routine annual follow-up in 1 Year A letter with findings and recommendations will be mailed to the patient. Reading Location: [id number] CC: Dr. Kristina Monsivais, DO; FE COLIN Commercial Horticulture Instructor: Signed Normal [facility] HPVon 09-04-2024 HPV Interp See Interp HPVN Normal See Interp HPVN [facility] Comment on above: Order Comment: Order placed by [email or web address] rule from [id number] Result Comment: Clinical Interpretation: High Risk HPV Typing: NEGATIVE HPV types 16, 18, 31, 33, 35, 39, 45, 51, 52, 56, 58, 59, 66 and 68 DNA were undetectable or below the pre-set threshold. The mayco High-Risk HPV DNA Test is not intended for use as a screening device for Pap normal women under age 30 and is not intended to substitute for regular Pap screening. The [employer]co High-Risk HPV DNA Test is designed to augment existing methods for the detection of cervical disease and should be used in conjunction with clinical information derived from other diagnostic and screening tests, physical examinations and full medical history in accordance with appropriate patient management procedures. NOTE: A negative result does not preclude the presence of HPV infection because results depend on adequate specimen collection, absence of inhibitors and sufficient DNA to be detected. Performed By: #### H PV #### [place] [address] HPV Source Cervix Normal [facility] Comment on above: Order Comment: Order placed by [email or web address] rule from [id number] Performed By: #### H PV #### [place] [id number] Process Safety Specialist Cytology Reporton 2024 Process Safety Specialist Cytology Report . Pathology Reports Accession: Collected Date/Time: Received Date/Time: Pathologist: [id number] 08/24/2024 14:03 EDT 08/24/2024 18:00 EDT MD SUSAN ALVARADO Process Safety Specialist Cytology Report SPECIMEN: Specimen Description: Liquid Prep w Ref HPV ASCUS Specimen: cervix/Endocervix Screening or Diagnostic: Screening RELEVANT HISTORY: LMP: 05/16/2022 Other clinical information: h/o abnormal pap SPECIMEN ADEQUACY: SATISFACTORY FOR EVALUATION Endocervical/Transfo rmational zone component present INTERPRETATION/RESUL TS: EPITHELIAL CELL ABNORMALITIES, SQUAMOUS Rare atypical squamous cells of undetermined significance (ASC-US) COMMENT: This Pap Test was successfully processed and evaluated with the assistance of the [employer] ThinPrep Test Imaging System. Verified by Pathology report verified by [facility] Screened by: ESTEBAN Electronically signed by SUSAN ALVARADO MD Sign-Out Date: 08/31/2024 14:45 Performing Lab: [facility], [address] [place] [address] Pathology Dept Disclaimer The Pap test is a screening test for cervical cancer. As evidenced by published data, it is subject to both inherent false negative and false positive results. Your patient's results should be interpreted in context with pertinent clinical history including gynecological examination. Normal [facility] Knee 4 or More Viewson 05-29 Knee 4 or More Views [facility] Imaging Services [address] [place] [address] Knee 4 or More Views MR#: [id number] Acct: [id number] Name: NILAY HENSON Rep #: [id number] : 1965 F 58 From: Ty Vidales MD PCP: Dr. Kristina Monsivais DO Status: DEP AMB Study: Knee 4 or More Views Date of Exam: 05/29/24 Exam# [id number] Ordering Dr: Preethi Toledo PROCEDURE: KNEE 4 OR MORE VIEWS REASON FOR EXAM: Left knee pain TECHNIQUE: 4 view(s) of the left knee COMPARISON: None. FINDINGS: No fracture. No suspicious bone lesion. Mild tricompartmental degenerative changes. Normal alignment. No effusion. Soft tissues are unremarkable. RAD/Knee 4 or More Views IMPRESSION: Mild degenerative changes with no acute osseous abnormality Reading Location: GABRIEL CC: SARAH Toledo; Dr. Kristina Monsivais DO Commercial Horticulture Instructor: Signed Normal [facility] Office Visit Reporton 2024 Office Visit Report [facility] [address] [place] [address] OFFICE VISIT Date of Service: 05/29/24 MR#: [id number] Acct: [id number] Patient: NILAY HENSON Rep #: [id number] : 1965 Provider: SARAH doty Age/Sex: 58/F Location: [email or web address] Status: Signed Intake Vital Signs 11/29/23 07:48 05/29/24 09:23 Height 5 ft 3 in 5 ft 3 in Weight: 142 lb BMI 25.1 BP 110/72 118/77 Blood Pressure Location Lt brachial Lt brachial Position Sitting Sitting Pulse 62 65 Pulse Source Monitor Monitor Temp 98.2 F 98.1 F Temp Source Temporal Temporal Pulse Oximetry (%) 100 100 Intake Visit Reasons: LEFT KNEE Chief Complaint: Left knee pain Allergies Sulfa (Sulfonamide Antibiotics) Allergy (Unknown, Verified 05/29/24 09:24) Hives Medications ???Medication ???Instructions ???Recorded ???Confirmed ???Type lorazepam 1 mg tablet 1 mg PO QHS PRN 12/11/21 05/29/24 History multivitamin 1 tab PO DAILY 12/11/21 05/29/24 H istory tirzepatide 5 mg/0.5 mL 5 mg (0.5 mL) subcut QWEEK 90 days 12/11/21 05/29/24 Rx subcutaneous pen injector #6.5 mL (Mounjaro) vitamin B complex (B 1 tab PO DAILY 12/11/21 05/29/24 H istory Complex-Vitamin B12 tablet) fluticasone propionate 50 1 spray intranasal DAILY #16 grams 06/03/22 05/29/24 Rx mcg/actuation nasal spray,suspension (Allergy Relief (fluticasone)) Patient : No [facility] Medical History Acute maxillary sinusitis, unspecified Anxiety Insomnia Seasonal allergies Surgical History History of gastric bypass Family History Grandfather Alcoholism Mother Anemia Other Cancer Social History Smoking Status: Never smoker alcohol intake: current alcohol intake frequency: other details: Socially substance use type: does not use what type of physical activity do you participate in: walking frequency: daily HPI HPI Chief Complaint: Left knee pain Details: NILAY GATSIOS, is a 58 F who presents to the office today for evaluation of left knee pain. Pain has been present for approximately 6 months, noticed after resuming yoga after summer break. Pain is to the anterior knee, worse with flexion greater than 90 degrees, kneeling, repetitive bending. Denies any prior injuries or surgeries. Denies any obvious swelling or bruising. Does note left lower extremity slightly larger than right lower extremity, this has been present for many years and previously worked up by cardiology with no acute findings. Patient did attempt Tylenol for symptom control with no improvement in symptoms. No topicals or NSAIDs attempted, no bracing or wraps. Denies any mechanical symptoms. Patient is physically active including daily walks and works out regularly, yoga weekly. ROS Resp Respiratory: Positive for other (No recent URI); No cough Cardio Cardiology: Positive for other (No palpitations) Gastro GI: No vomiting Musc Musculoskeletal: Positive for joint pain (l knee) Neuro Neurology: Positive for other (Paresthesias as noted in HPI); No dizziness Vijay/Lymp Hematologic/Lymphati c: No easy bleeding or easy bruising Exam Const General: healthy appearing, no acute distress, well developed and well groomed Nutritional Appearance: average body habitus Orientation: alert and oriented x3 HENMT Head: normal to inspection Eyes General: appearance normal, both eyes and all related structures Resp Effort Inspection: normal respiratory effort and able to speak in complete sentences Musc Musculoskeletal: Yes joint tenderness General General: Yes no acute distress and Yes well groomed Neurologic: Yes alert and Yes oriented x3 Left Knee Skin/Wound: No ecchymosis, No erythema and No swelling Contralateral Normal: Yes Homans Sign: No Knee ROM: No ROM-Flexion 0-140 (pressure with flex 100-120) Examination: No med jt line tenderness, Yes Lat jt line tenderness, Yes Crepitus, No TTP Pes Anserine and No Illiotibial band tenderness Quad Atrophy: No Stability: NML: Anterior Drawer, NML: Valgus 0, NML: Valgus 30, NML: Varus 0 and NML: Varus 30 Apprehension with Lateral Translation: No Patella Grind: No KNEE: Skin is pink, warm, dry and intact. Palpation: Tenderness with palpation of the lateral aspect of the knee and infrapatellar region with knee in flexion greater than 90%, mild swelling palpated mildly positive ballottement. Full range of distal joints with no symptom aggravation, distal motor or sensory intact with brisk cap refill at 2 seconds. Gait: Steady, no limp noted. Supplemental Info Independent review of 4 view x-ray completed on date of visit. There is no acute fra (more content not included)... Normal [facility] Process Safety Specialist Cytology Reporton 2023 Process Safety Specialist Cytology Report . Pathology Reports Accession: Collected Date/Time: Received Date/Time: Pathologist: [id number] 08/05/2023 13:09 EDT 08/05/2023 18:00 EDT Process Safety Specialist Cytology Report SPECIMEN: Specimen Description: Liquid Prep Reflex ASCUS Specimen: Cervical/Endocervica l Screening or Diagnostic: Screening RELEVANT HISTORY: LMP: 05/16/22 SPECIMEN ADEQUACY: SATISFACTORY FOR EVALUATION Endocervical/Transfo rmational zone component present INTERPRETATION/RESUL TS: NEGATIVE FOR INTRAEPITHELIAL LESION OR MALIGNANCY COMMENT: This Pap Test was successfully processed and evaluated with the assistance of the [employer] ThinPrep Test Imaging System. Electronically Signed by Pathology report verified by [facility] Screened by: [place] Electronically signed by Mariela BERGER (ASCP) Sign-Out Date: 08/10/2023 15:23 Performing Lab: [facility], [address] [place] [address] Pathology Dept Disclaimer The Pap test is a screening test for cervical cancer. As evidenced by published data, it is subject to both inherent false negative and false positive results. Your patient's results should be interpreted in context with pertinent clinical history including gynecological examination. Normal [facility] ([place]) Culture, urineOrdered By: Elizabeth Roman on 12-09-2022 Bacteria identified Cx Nom (U) Culture exhibits no growth. [facility] Laboratory - Chemistry and C hemistry - challengeon 12-09-2022 Bilirubin Ql (U) Negative [facility] Glucose Ql (U) Negative [facility] Ketones Ql (U) Moderate (40[facility] Specific gravity (U) [Rel density] 1.015 [facility] Urobilinogen (U) [Mass/Vol] Negative [facility] Laboratory - Hematology and Cell countson 12-09-2022 Hemoglobin Ql (U) Small [facility] Laboratory - Specimen inform ationon 12-09-2022 Clarity (U) Clear [facility] Color (U) Yellow [facility] Laboratory - Urinalysison Nitrite Ql (U) Negative [facility] Protein Ql (U) Negative [facility] No Panel Informationon 12-09 Urine Leukocytes Positive [facility] Urine Non-Hemolyzed Blood Negative [facility] Culture, urineOrdered By: Elizabeth Roman on 06-16-2022 Bacteria identified Cx Nom (U) Escherichia coli [facility] Basophil percentageOrdered B y: Tr Roman on 06-14-2022 Basophil percentage 10-25 SEEN /hpf 0-5 [facility] Bilirubin Test strip Ql (U)O rdered By: Tr Roman on 06-14-2022 Bilirubin Ql (U) Negative Negative [facility] Ketones Test strip Ql (U)Ord ered By: Tr Roman on 06-14-2022 Ketones Ql (U) Negative Negative [facility] Laboratory - Chemistry and C hemistry - challengeon 06-14-2022 Bilirubin Ql (U) Negative [facility] Glucose Ql (U) Negative [facility] Ketones Ql (U) Negative [facility] pH (U) 5.0 [pH] [facility] Specific gravity (U) [Rel density] 1.020 [facility] Urobilinogen (U) [Mass/Vol] 0.1145849 mg/dL [facility] Laboratory - Hematology and Cell countson 06-14-2022 Hemoglobin Ql (U) Moderate [facility] Laboratory - Specimen inform ationon 06-14-2022 Clarity (U) Cloudy [facility] Color (U) YELLOW [facility] Laboratory - Urinalysison Nitrite Ql (U) Negative [facility] Protein Ql (U) Negative [facility] Mucus LM Ql (Urine sed)Order ed By: Tr Roman on 06-14-2022 Mucus Ql (Urine sed) 0 SEEN /hpf [facility] Nitrite Test strip Ql (U)Ord ered By: Tr Roman on 06-14-2022 Nitrite Ql (U) Negative Negative [facility] No Panel Informationon 06-14 Urine Leukocytes Positive [facility] Urine Non-Hemolyzed Blood Non-Hemolyzed [facility] Protein Test strip Ql (U)Ord ered By: Tr Roman on 06-14-2022 Protein Ql (U) 15 mg/dl Negative [facility] Squamous epithelial cells de tection in urine sediment by light microscopyOrdered By: Tr Roman on 06-14-2022 Epithelial cells.squamous LM Ql (Urine sed) 0-5 SEEN /hpf 5-10 [facility] Urine blood detectionOrdered By: Tr Roman on 06-14-2022 RBC Ql (U) 25 /ul Negative [facility] RBC Ql (U) 0-5 SEEN /hpf 0-5 [facility] Urine clarityOrdered By: Tony Roman on 06-14-2022 Clarity (U) Clear Clear [facility] Urine color determinationOrd ered By: Tr Roman on 06-14-2022 Color (U) Yellow Yellow [facility] Urine glucose detectionOrder ed By: Tr Roman on 06-14-2022 Glucose Ql (U) Normal mg/dl Normal [facility] Urine leukocyte esterase det ection by dipstickOrdered By: Tr Roman on 06-14-2022 Leukocyte esterase Test strip Ql (U) 100 /ul Negative [facility] Urine pHOrdered By: Tr vazquez on 06-14-2022 pH (U) 6.0 [pH] 5.0 - 8.0 [facility] Urine sediment bacteria coun t by microscopy (number/high power field)Ordered By: Tr Roman on 06-14-2022 Bacteria LM.HPF (Urine sed) [#/Area] 1 /[HPF] None Seen [facility] Urine specific gravity measu rementOrdered By: Tr Roman on 06-14-2022 Specific gravity (U) [Rel density] 1.025 1.002-1.030 [facility] Urobilinogen Auto test strip Ql (U)Ordered By: Tr Roman on 06-14-2022 Urobilinogen Ql (U) Normal mg/dl Normal [facility] Basophil percentageon 2021 Basophil percentage 10-25 SEEN /hpf 0-5 [facility] Work Phone: Bilirubin Test strip Ql (U)o n 11-26-2021 Bilirubin Ql (U) Negative Negative [facility] Work Phone: Ketones Test strip Ql (U)on 11-26-2021 Ketones Ql (U) Negative Negative [facility] Work Phone: Laboratory - Chemistry and C hemistry - challengeon 11-26-2021 Bilirubin Ql (U) Negative [facility] Work Phone: Glucose Ql (U) Negative [facility] Work Phone: Ketones Ql (U) Negative [facility] Work Phone: pH (U) 6.0 [pH] [facility] Work Phone: Specific gravity (U) [Rel density] 1.020 [facility] Work Phone: Urobilinogen (U) [Mass/Vol] 0.4464988 mg/dL [facility] Work Phone: Laboratory - Hematology and Cell countson 11-26-2021 Hemoglobin Ql (U) Hemolyzed [facility] Work Phone: Laboratory - Specimen inform ationon 11-26-2021 Clarity (U) Clear [facility] Work Phone: Color (U) YELLOW [facility] Work Phone: Laboratory - Urinalysison Nitrite Ql (U) Negative [facility] Work Phone: Protein Ql (U) Negative [facility] Work Phone: Mucus LM Ql (Urine sed)on Mucus Ql (Urine sed) 0 SEEN /hpf [facility] Work Phone: Nitrite Test strip Ql (U)on 11-26-2021 Nitrite Ql (U) Negative Negative [facility] Work Phone: No Panel Informationon 11-26 Urine Leukocytes Positive [facility] Work Phone: Urine Non-Hemolyzed Blood Small [facility] Work Phone: Protein Test strip Ql (U)on 11-26-2021 Protein Ql (U) Negative Negative [facility] Work Phone: Squamous epithelial cells de tection in urine sediment by light microscopyon 11-26-2021 Epithelial cells.squamous LM Ql (Urine sed) 0-5 SEEN /hpf 5-10 [facility] Work Phone: Urine blood detectionon 11-09 RBC Ql (U) 25 /ul Negative [facility] Work Phone: RBC Ql (U) 5-10 SEEN /hpf 0-5 [facility] Work Phone: Urine clarityon 11-26-2021 Clarity (U) Clear Clear [facility] Work Phone: Urine color determinationon 11-26-2021 Color (U) Yellow Yellow [facility] Work Phone: Urine glucose detectionon Glucose Ql (U) Normal mg/dl Normal [facility] Work Phone: Urine leukocyte esterase det ection by dipstickon 11-26-2021 Leukocyte esterase Test strip Ql (U) 500 /ul Negative [facility] Work Phone: Urine pHon 11-26-2021 pH (U) 6.0 [pH] 5.0 - 8.0 [facility] Work Phone: Urine sediment bacteria coun t by microscopy (number/high power field)on 11-26-2021 Bacteria LM.HPF (Urine sed) [#/Area] 0 /[HPF] None Seen [facility] Work Phone: Urine specific gravity measu rementon 11-26-2021 Specific gravity (U) [Rel density] 1.010 1.002-1.030 [facility] Work Phone: Urobilinogen Auto test strip Ql (U)on 11-26-2021 Urobilinogen Ql (U) Normal mg/dl Normal [facility] Work Phone: No Panel Informationon 09-29 POC SARS CoV-2 Antigen Positive [facility] Work Phone: Culture, urine Bacteria identified Cx Nom (U) Escherichia coli [facility] Work Phone: Vital Signs Date Time Vital Sign Value Performing Clinician Faci lity 01-06-2025 08:25-0400 Body height 160.[address] Kristina Monsivais DO Work Phone: [facility] 01-06-2025 08:25-0400 Body mass index (BMI) [Ratio] 25.1 kg/m2 Dr. Kristina Monsivais DO Work Phone: [facility] 01-06-2025 08:25-0400 Body temperature 98.1 [degF] Dr. Kristina Monsivais DO Work Phone: [facility] 01-06-2025 08:25-0400 Body weight 64.[address] Kristina Monsivais DO Work Phone: [facility] 01-06-2025 08:25-0400 Diastolic blood pressure 74 mm[Hg] Dr. Kristina Monsivais DO Work Phone: [facility] 01-06-2025 08:25-0400 Heart rate 63 /min Dr. Kristina Monsivais DO Work Phone: [facility] 01-06-2025 08:25-0400 SaO2% (BldA) [Mass fraction] 98 % Dr. Kristina Monsivais DO Work Phone: [facility] 01-06-2025 08:25-0400 Systolic blood pressure 132 mm[Hg] Dr. Kristina Monsivais DO Work Phone: [facility] 05-29-2024 09:23-0500 Body height 160.[address] Kristina Monsivais DO Work Phone: [facility] 05-29-2024 09:23-0500 Body mass index (BMI) [Ratio] 25.1 kg/m2 Dr. Kristina Monsivais DO Work Phone: [facility] 05-29-2024 09:23-0500 Body temperature 98.1 [degF] Dr. Kristina Monsivais DO Work Phone: [facility] 05-29-2024 09:23-0500 Body weight 64.[address] Kristina Monsivais DO Work Phone: [facility] 05-29-2024 09:23-0500 Diastolic blood pressure 77 mm[Hg] Dr. Kristina Monsivais DO Work Phone: [facility] 05-29-2024 09:23-0500 Heart rate 65 /min Dr. Kristina Monsivais DO Work Phone: [facility] 05-29-2024 09:23-0500 SaO2% (BldA) [Mass fraction] 100 % Dr. Kristina Monsivais DO Work Phone: [facility] 05-29-2024 09:23-0500 Systolic blood pressure 118 mm[Hg] Dr. Kristina Monsivais DO Work Phone: [facility] 12-09-2022 14:14-0400 Body height 160.[address] Kristina Monsivais Work Phone: [facility] 12-09-2022 14:14-0400 Body mass index (BMI) [Ratio] 24.4 kg/m2 Dr. Kristina Monsivais Work Phone: [facility] 12-09-2022 14:14-0400 Body temperature 98 [degF] Dr. Kristina Monsivais Work Phone: [facility] 12-09-2022 14:14-0400 Body weight 62.[address] Kristina Monsivais Work Phone: [facility] 12-09-2022 14:14-0400 Diastolic blood pressure 66 mm[Hg] Dr. Kristina Monsivais Work Phone: [facility] 12-09-2022 14:14-0400 Heart rate 73 /min Dr. Kristina Monsivais Work Phone: [facility] 12-09-2022 14:14-0400 SaO2% (BldA) [Mass fraction] 99 % Dr. Kristina Monsivais Work Phone: [facility] 12-09-2022 14:14-0400 Systolic blood pressure 114 mm[Hg] Dr. Kristina Monsivais Work Phone: [facility] 06-14-2022 14:52-0500 Body temperature 98.5 [degF] Dr. Kristina Monsivais Work Phone: [facility] 06-14-2022 14:52-0500 Diastolic blood pressure 71 mm[Hg] Dr. Kristina Monsivais Work Phone: [facility] [facility] 06-14-2022 14:52-0500 Heart rate 68 /min Dr. Kristina Monsivais Work Phone: [facility] 06-14-2022 14:52-0500 Respiratory rate 16 /min Dr. Kristina Monsivais Work Phone: [facility] 06-14-2022 14:52-0500 SaO2% (BldA) [Mass fraction] 98 % Dr. Kristina Monsivais Work Phone: [facility] 06-14-2022 14:52-0500 Systolic blood pressure 108 mm[Hg] Dr. Kristina Monsivais Work Phone: [facility] 05-18-2022 14:54-0500 Body temperature 98.3 [degF] Dr. Kristina Monsivais Work Phone: [facility] 05-18-2022 14:54-0500 Diastolic blood pressure 69 mm[Hg] Dr. Kristina Monsivais Work Phone: [facility] 05-18-2022 14:54-0500 Heart rate 72 /min Dr. Kristina Monsivais Work Phone: [facility] 05-18-2022 14:54-0500 Respiratory rate 16 /min Dr. Kristina Monsivais Work Phone: [facility] 05-18-2022 14:54-0500 SaO2% (BldA) [Mass fraction] 97 % Dr. Kristina Monsivais Work Phone: [facility] 05-18-2022 14:54-0500 Systolic blood pressure 102 mm[Hg] Dr. Kristina Monsivais Work Phone: [facility] 05-11-2022 15:07-0500 Body temperature 98.5 [degF] Dr. Kristina Monsivais Work Phone: [facility] 05-11-2022 15:07-0500 Body weight 67.[address] Kristina Monsivais Work Phone: [facility] 05-11-2022 15:07-0500 Diastolic blood pressure 89 mm[Hg] Dr. Kristina Monsivais Work Phone: [facility] 05-11-2022 15:07-0500 Heart rate 89 /min Dr. Kristina Monsivais Work Phone: [facility] 05-11-2022 15:07-0500 Respiratory rate 16 /min Dr. Kristina Monsivais Work Phone: [facility] 05-11-2022 15:07-0500 SaO2% (BldA) [Mass fraction] 96 % Dr. Kristina Monsivais Work Phone: [facility] 05-11-2022 15:07-0500 Systolic blood pressure 127 mm[Hg] Dr. Kristina Monsivais Work Phone: [facility] 11-26-2021 09:28-0400 Body temperature 98.6 [degF] Dr. Kristina Monsivais Work Phone: [facility] Work Phone: 11-26-2021 09:28-0400 Diastolic blood pressure 71 mm[Hg] Dr. Kristina Monsivais Work Phone: [facility] Work Phone: 11-26-2021 09:28-0400 Heart rate 60 /min Dr. Kristina Monsivais Work Phone: [facility] Work Phone: 11-26-2021 09:28-0400 Respiratory rate 12 /min Dr. Kristina Monsivais Work Phone: [facility] Work Phone: 11-26-2021 09:28-0400 SaO2% (BldA) [Mass fraction] 100 % Dr. Kristina Monsivais Work Phone: [facility] Work Phone: 11-26-2021 09:28-0400 Systolic blood pressure 107 mm[Hg] Dr. Kristina Monsivais Work Phone: [facility] Work Phone: Encounters Encounter Date Encounter Type Care Provider Facility Start: 02-15-2025 ambulatory Kristina Monsivais Facility: [facility] Start: 01-15-2025 End: 01-15-2025 Patient encounter procedure Tr Roman [place] -[facility] Work Phone: Start: 01-15-2025 End: 01-15-[address] Kristina Monsivais DO Work Phone: -[facility] Start: 01-06-2025 End: 01-06-2025 Patient encounter procedure Jesse Tejeda [facility] Work Phone: Start: 01-06-2025 End: 01-06-[address] Kristina Monsivais DO Work Phone: [facility] Start: 09-14-2024 End: 09-14-[address] Kristina Monsivais DO Work Phone: [facility] Work Phone: Start: 09-14-2024 End: 09-14-[address] Kristina Monsivais DO Work Phone: -[facility] Work Phone: Start: 09-14-2024 End: 09-14-2024 ambulatory DA AROLDO Facility:[facility] Start: 08-24-2024 End: 08-28-2024 ambulatory FE COLIN MD Facility:A Start: 08-24-2024 End: 08-28-2024 Encounter for gynecological examination (general) (routine) without abnormal findings FE COLIN MD Facility:A Start: 05-29-2024 End: 05-29-2024 Patient encounter procedure Preethi SMITH -[facility] Work Phone: Start: 05-29-2024 End: 05-29-2024 ambulatory Kyaw Torres Facility:[facility] Start: 08-05-2023 End: 08-10-2023 ambulatory FE COLIN MD Facility:A Start: 08-05-2023 End: 08-10-2023 Encounter for gynecological examination (general) (routine) without abnormal findings FE COLIN MD Facility:[facility] Start: 12-09-2022 End: 12-09-[address] Kristina Monsivais Work Phone: [facility] Work Phone: Start: 12-09-2022 End: 12-09-[address] Kristina Monsivais Work Phone: [facility] Work Phone: Start: 12-09-2022 End: 12-09-[address] Kristina Monsivais Work Phone: [facility] Work Phone: Start: 06-14-2022 End: 06-14-[address] Kristina Monsivais Work Phone: [facility] Work Phone: Start: 06-14-2022 End: 06-14-[address] [facility] Start: 06-14-2022 End: 06-14-[address] Kristina Monsivais Work Phone: [facility] Start: 05-18-2022 End: 05-18-[address] Kristina Monsivais Work Phone: [facility] Start: 05-11-2022 End: 05-11-[address] Kristina Monsivais Work Phone: [facility] Start: 03-15-2022 End: 03-15-[address] Kristina Monsivais Work Phone: [facility] Start: 03-08-2022 End: 03-08-[address] Kristina Monsivais Work Phone: [facility] Start: 11-26-2021 End: 11-26-[address] Kristina Monsivais Work Phone: [facility] Work Phone: Start: 11-26-2021 End: 11-26-[address] [facility] Start: 11-26-2021 End: 11-26-[address] Kristina Monsivais Work Phone: [facility] Start: 09-29-2021 End: 09-29-[address] Kristina Monsivais Work Phone: [facility] Procedures Date Procedure Procedure Detail Performing Clinician Start: 09-14-2024 Screening mammography Mega Monsivais DO Work Phone: Start: 05-29-2024 X-ray of knee, four or more views Dr[address] Kristina Monsivais DO Work Phone: Start: 12-09-[address] Kristina Monsivais Work Phone: Start: 03-15-[address] Courtney Monsivais Work Phone: Start: 05-01-2020 Cytopathology proced ure, preparation of smear, genital source Urine culture Dr. Kristina parson Work Phone: Urine culture Dr. Kristina parson Work Phone: Plan of Treatment Date Care Activity Detail Author Start: 01-15-2025 Radiologic examinati on knee 3 views Knee 3 Views [facility] Start: 01-15-2025 XR Knee 3 Views [facility] Immunizations Immunization Date Immunization Notes Care Provider [facility] 03-07-2023 influenza, injectabl e, quadrivalent, preservative free Dr. Kristina Monsivais DO Work Phone: [facility] 03-08-2022 influenza, injectabl e, quadrivalent, preservative free Dr. Kristina Monsivais Work Phone: [facility] 03-08-2022 influenza, seasonal, injectable Dr. Kristina Monsivais Work Phone: [facility] 05-14-2020 Covid (Moderna) Dr. Kristina penny Work Phone: [facility] 04-16-2020 Covid (Moderna) Dr. Kristina penny Work Phone: [facility] 02-18-2020 influenza, injectabl e, quadrivalent, preservative free Dr. Kristina Monsivais Work Phone: [facility] 02-18-2020 influenza, seasonal, injectable Dr. Kristina Monsivais Work Phone: [facility] 01-24-2019 influenza, injectabl e, quadrivalent, preservative free Dr. Kristina Monsivais Work Phone: [facility] 01-24-2019 influenza, seasonal, injectable Dr. Kristina Monsivais Work Phone: [facility] 01-18-2018 influenza, injectabl e, quadrivalent, preservative free Dr. Kristina Monsivais Work Phone: [facility] 01-18-2018 influenza, seasonal, injectable Dr. Kristina Monsivais Work Phone: [facility] 02-24-2017 influenza, injectabl e, quadrivalent, preservative free Dr. Kristina Monsivais Work Phone: [facility] 02-24-2017 influenza, seasonal, injectable Dr. Kristina Monsivais Work Phone: [facility] 02-18-2016 influenza, injectabl e, quadrivalent, preservative free Dr. Kristina Monsivais Work Phone: [facility] 02-18-2016 influenza, seasonal, injectable Dr. Kristina Monsivais Work Phone: [facility] Payers Date Payer Category Payer Self-pay [id number] 2023 Private Health Insurance [id number] 1965 Unknown [id number]. [id number] 1965 Unknown [id number] Private Health Insurance A00 [id number] Private Health Insurance [id number] Unknown [id number] [id number] Unknown [id number] 2.16.8 [id number] Unknown [id number] 2.16.8 [id number] Unknown [id number] 2.16.8 [id number] Unknown [id number] 2.16.8 [id number] Unknown [id number] 2.16.8 [id number] Unknown [id number] 2.16.8 [id number] Social History Date Type Detail Facility Tobacco smoking stat us TXIS Unknown if ever smoked [facility] Work Phone: Start: 1965 Sex Assigned At Female [facility] Start: 06-14-2022 End: 12-09-2022 Tobacco smoking status TXIS Unknown if ever smoked [facility] Start: 04-14-2023 End: 01-06-2025 Tobacco smoking status NHIS Never smoked tobacco (finding) [facility] Sex Female [facility] Evaluation note 01-06-2025 Note Date & Type Note Facility 01-06-2025 Evaluation note Diagnosis Onset Date Resolution Back pain acute December 8:23am [facility] Work Phone: Progress note 01-06-2025 Note Date & Type Note Facility 01-06-2025 Progress note [facility] Evaluation note 05-29-2024 Note Date & Type Note Facility 05-29-2024 Evaluation note Diagnosis Onset Date Resolution Infrapatellar bursitis of left knee acute May 29 025 9:16am [facility] Work Phone: Evaluation note Note Date & Type Note Facility Evaluation note Diagnosis Onset Date Acute cystitis acute Urinary tract infection none active [facility] Work Phone: Evaluation note Note Date & Type Note Facility Evaluation note Diagnosis Onset Date Right ankle sprain acute Acute maxillary sinusitis, unspecified acute Acute left otitis media acut e Acute UTI acute [facility] Work Phone: Evaluation note Note Date & Type Note Facility Evaluation note Diagnosis Onset Date Acute UTI acute [facility] Work Phone: Evaluation note Note Date & Type Note Facility Evaluation note Diagnosis Onset Date Resolution Back pain acute December 8:23am [facility] Work Phone: Progress note Note Date & Type Note Facility Progress note Note Date/Time January 06, 2025 8:53am [facility] [address] , [address] [place] [address] OFFICE VISIT Date of Service: 01/06/25 MR#: [id number] Acct: [id number] Name: NILAY HENSON Rep #: [id number] : 1965 Provider: SARAH Tejeda Age/Sex: 59/F Location: [facility] Status: Signed Intake Vital Signs 05/29/24 09:23 01/06/25 08:21 01/06/25 08:25 Height 5 ft 3 in 5 ft 3 in 5 ft 3 in Weight: 142 lb 142 lb BMI 25.1 25.1 BP 118/77 132/74 H Blood Pressure Location Lt brachial Lt brachial Position Sitting Sitting Pulse 65 63 Pulse Source Monitor Monitor Temp 98.1 F 98.1 F Temp Source Temporal Oral Pulse Oximetry (%) 100 98 Oxygen Delivery Method room air Intake Visit Reasons: SCIATIC BACK PAIN Chief Complaint: Back Pain Accompanied by: Self Allergies Sulfa (Sulfonamide Antibiotics) Allergy (Unknown, Verified 01/06/25 08:28) Hives Medications ?Medication ?Instructions ?Recorded ?Confirmed ?Type lorazepam 1 mg tablet 1 mg PO QHS PRN 12/11/21 History multivitamin 1 tab PO DAILY 12/11/2112/11 History tirzepatide 5 mg/0.5 mL 5 mg (0.5 mL) subcut QWEEK 9 0 days 12/11/21 01/06/25 Rx subcutaneous pen injector #6.5 mL (Ken) vitamin B complex (B 1 tab PO DAILY 12/11/2112/11 History Complex-Vitamin B12 tablet) cyclobenzaprine 10 mg tablet 10 mg PO TID PRN muscle s pasm 5 01/06/25 01/06/25 Rx days #15 tabs prednisone 20 mg tablet 40 mg (2 x 20 mg) PO QDAY 5 days 01/06/25 01/06/25 Rx #10 tabs Nurse's Note: Sciatic back pain. Started yesterday. Pain going down left side, burning. TakingTylenol, relief. PFSH Medical History Acute maxillary sinusitis, unspecified Anxiety Insomnia Seasonal allergies Surgical History History of gastric bypass Family History Grandfather Alcoholism Mother Anemia Other Cancer Social History Smoking Status: Never smoker alcohol intake: current alcohol intake frequency: other details: Socially substance use type: does not use what type of physical activity do you participate in: walking frequency: daily HPI HPI Chief Complaint: Back Pain Details: NILAY HENSON, is a 59 F who presents to the office today for concerns regarding back pain that she attributes to sciatica related issues. This started yesterday. She states pain is rating down her left side is noted as a burning sensation. She has been taking Tylenol with minimal relief. She deniesloss of bowel or bladder control. She denies any saddle anesthesia symptoms. ROS Const Constitutional: No chills, fatigue, fever(s) or weakness Resp Respiratory: No shortness of breath Cardio Cardiology: No chest pain with exertion Gastro GI: No incontinent of stools Genitourinary-Female: No urinary incontinence Musc Musculoskeletal: Positive for back pain; No muscle weakness, numbness (denies saddle anesthesia) or tingling (denies saddle anesthesia) Neuro Neurology: No weakness, numbness (denies saddle anesthesia) or tingling (denies saddle anesthesia) Endo Endocrine: No fatigue Vijay/Lymp Hematologic/Lymphatic: Positive for other (Denies cancer history or trauma. Denies IV drug use) Exam Const General: cooperative, healthy appearing, comfortable and no acute distress Chest Chest palpation & inspection: normal inspection of the chest Resp Effort & Inspection: normal respiratory effort, able to speak in complete sentences, symmetric chest movement, not labored, no retractions and no use of accessory muscles Auscultation: Bilateral: Clear to Auscultation Cardio Rate: other Rhythm: regular rhythm Heart Sounds: S1 normal and S2 normal Musc Musculoskeletal: No joint tenderness, joint redness, joint warmth, decreased range of motion, spinal deformity or muscle weakness Thoracic/Lumbar Spine: thoracic and lumbar spine normal to inspection, Lasegue'ssign negative, no paraspinal tenderness, no thoracic spinal tenderness and no lumbar spinal tenderness Neuro General: patient alert, patient awake and patient oriented x3 Coding Level of Care Code Off vis,est,level 3 Diagnoses Acute left-sided low back pain with left-sided sciatica M54.42 Back pain location: low back pain Chronicity: acute Back pain laterality: left Sciatica presence: with sciatica Sciatica laterality: sciatica of left side Assessment and Plan Assessment and Plan (1) Back pain: Status: Acute Qualifiers: Back pain location: low back pain Chronicity: acute Back pain laterality: left Sciatica presence: with sciatica Sciatica laterality: sciatica of left side Qualified Code(s): M54.42 - Lumbago with sciatica, left side Plan: She does acknowledge having sciatica related pain previously many years ago. She had back pain yesterday morning and was at a high school reunion that required increased activity with dancing. Towards the evening she had worseningback pain. As this pain has worsened become more intolerable she presents today. Will add steroid therapy and muscle relaxer. She will continue with Tylenol. She states that she is unable to take NSAIDs. Long-term treatment plan may include physical therapy. Encouraged to get plenty of rest, drink lotsof clear liquids, and use Tylenol or Ibuprofen (unless contraindicated) for fever and comfort. Patient also educated on other symptomatic management techniques. To be seen in 7-10 days if no improvement; sooner if worsening of symptoms.? Patient advised of potential red flags and when appropriate to reportto the ED.? Patient verbalized understanding and agreement with all the above. Medications: New prednisone 40 mg (2 x 20 mg) PO QDAY 10 tabs 0RF 5 days cyclobenzaprine 10 mg PO TID PRN 15 tabs 0RF muscle spasm 5 days 01/06/25 [id number] <Electronically signed by Jesse HILTONC> Date _ Jesse Roof [employer] [facility] [facility] Cosigner Signature: Date (if applicable) CC: Dr. Kristina Monsivais, DO ~ [facility] Work Phone: Reason for referral (narrative) Note Date & Type Note Facility Reason for referral (narrative) No reason for referral information available [facility] Work Phone: Summary Purpose Family History No Family History Records Found Relationship Condition Age at Onset Recorded Date/T rosa isela Not Specified Malignant neoplasm Unknown grandfather Alcoholism Unknown mother Anemia Unknown Advance Directives No Advanced Directives Records FoundNo Advanced Directives Records FoundNo Advanced Directives Records FoundNo Advanced Directives Records Found Chief Complaint and Reason for Visit Chief Complaint BMS COVID Urinary tract infection Reason for Visit Acute cystitis Urinary tract infection Chief Complaint FLU SHOT RIGHT ANKLE SPRAIN 3 VIEW RT ANKLE EARACHE/SINUS EARACHE UTI/Yeast Infection LABSPEC Reason for Visit Right ankle sprain Acute maxillary sinusitis, unspecified Acute left otitis media Acute UTI Chief Complaint UTI Reason for Visit Acute UTI Chief Complaint Admit Date LEFT KNEE May 29, 2024 9:16am 4VIEW LT KNEE May 29, 2024 9:27am SCREENING September 14, 2024 10:04 am Reason for Visit Admit Date Infrapatellar bursitis of left knee Febr uary 2024 9:16am Chief Complaint Admit Date SCREENING September 14, 2024 10:04 am SCIATICA BACK PAIN January 06, 2025 8:23am Reason for Visit Admit Date Back pain January 06, 2025 8:23am Chief Complaint Admit Date SCIATICA BACK PAIN January 06, 2025 8:23am left knee injury January 15, 2025 12 :46pm left knee injury January 15, 2025 12 :47pm Additional Source Comments INFORMATION SOURCE (unrecogn ized section and content) DATE CREATED AUTHOR 05/17/2020 Kat Bella Robles DATE CREATED AUTHOR AUTHOR'S ORGANIZ ATION 08/20/2023 [facility] ([place]) DATE CREATED AUTHOR AUTHOR'S ORGANIZ ATION 09/08/2024 [facility] DATE CREATED AUTHOR AUTHOR'S ORGANIZ ATION 02/10/2025 [facility] Goals (unrecognized section and content) Goals may be documented in a n alternate sectionGoals may be documented in an alternate sectionGoals may be documented in an alternate sectionGoals may be documented in an alternate sectionGoals may be documented in an alternate sectionGoals may be documented in an alternate sectionGoals may be documented in an alternate section Care Teams (unrecognized sec tion and content) Team Status: Active Member Role Status Dates Dr. Kristina Monsivais DO Family Provider Active Dr. Kristina Monsivais DO Primary Care Provider Active Team Status: Inactive Member Role Status Dates Dr. Kristina Monsivais DO Primary Care Provider, Referrin g Provider Active Tr RAO PA Attending Provider Active Team Status: Inactive Member Role Status Dates Dr. Kristina Monsivais DO Primary Care Provider, Referrin g Provider Active Jeremy RAO PA Attending Provider Active Team Status: Inactive Member Role Status Dates Dr. Kristina Monsivais DO Primary Care Provider Active Tr RAO PA Attending Provider Active Team Status: Inactive Member Role Status Dates Dr. Kristina Monsivais DO Primary Care Provider Active Tr RAO PA Attending Provider, Referring Provi alo Active Team Status: Active Member Role Status Dates Dr. Kristina Monsivais DO Primary Care Provider Active Team Status: Inactive Member Role Status Dates Dr. Kristina Monsivais DO Primary Care Provider Active Start: May 29, 2024 End: May 29, 2024 SARAH Venegas Attending Provider Active Start: May 29, 2024 End: May 29, 2024 Team Status: Inactive Member Role Status Dates Dr. Kristina Monsivais DO Primary Care Provider Active Start: May 29, 2024 End: May 29, 2024 Dr. Kristina Monsivais DO Referring Provider Active Start: May 29, 2024 End: May 29, 2024 Dr. Kyaw Torres MD Attending Provider Active S tart: May 29, 2024 End: May 29, 2024 Team Status: Inactive Member Role Status Dates Dr. Kristina Monsivais DO Primary Care Provider Active Start: September 14, 2024 End: September 14, 2024 FE, NANNAPANENI Attending Provider Active St art: September 14, 2024 End: September 14, 2024 FE, NANNAPANENI Referring Provider Active St art: September 14, 2024 End: September 14, 2024 Team Status: Active Member Role/Relationship Status Dates Dr. Kristina Monsivais DO Primary care physician Active Team Status: Inactive Member Role/Relationship Status Dates Dr. Kristina Monsivais DO Primary care physician Active Start: September 14, 2024 End: September 14, 2024 FE, NANNAPANENI Attending physician Active S tart: September 14, 2024 End: September 14, 2024 FE, NANNAPANENI Referring Provider Active St art: September 14, 2024 End: September 14, 2024 Team Status: Inactive Member Role/Relationship Status Dates Dr. Kristina Monsviais DO Primary care physician Active Start: January 06, 2025 End: January 06, 2025 Dr. Kristina Monsivais DO Referring Provider Active Start: January 06, 2025 End: January 06, 2025 Jesse Tejeda [employer], [facility] Attending physician Active Start: January 06, 2025 End: January 06, 2025 Team Status: Inactive Member Role/Relationship Status Dates Dr. Kristina Monsivais DO Primary care physician Active Start: January 06, 2025 End: January 06, 2025 Dr. Kristina Monsivais DO Referring Provider Active Start: January 06, 2025 End: January 06, 2025 Jesse Tejeda [employer], [facility] Attending physician Active Start: January 06, 2025 End: January 06, 2025 Team Status: Inactive Member Role/Relationship Status Dates Dr. Kristina Monsivais DO Primary care physician Active Start: January 15, 2025 End: January 15, 2025 Dr. Kristina Monsivais DO Referring Provider Active Start: January 15, 2025 End: January 15, 2025 MAIRA Starks Attending physician Active St art: January 15, 2025 End: January 15, 2025 Team Status: Inactive Member Role/Relationship Status Dates Dr. Kristina Monsivais DO Primary care physician Active Start: January 15, 2025 End: January 15, 2025 Dr. Kristina Monsivais DO Referring Provider Active Start: January 15, 2025 End: January 15, 2025 MAIRA Starks Attending physician Active St art: January 15, 2025 End: January 15, 2025 FOR RECORDS PERTAINING TO PATIENTS WHO ARE OR HAVE BEEN ENROLLED IN A CHEMICAL DEPENDENCY/SUBSTANCEABUSE PROGRAM, SOME INFORMATION MAY BE OMITTED. This clinical summary was aggregated from multiple sources. Caution should be exercised in using it in the provision of clinical care. This summary normalizes information from multiple sources, and as a consequence, information in this document may materially change the coding, format and clinical context of patient data. In addition, data may be omitted in some cases. CLINICAL DECISIONS SHOULD BE BASED ON THE PRIMARY CLINICAL RECORDS. [facility] provides no warranty or guarantee of the accuracy or completeness of information in this document.
== END | disposition home or self-care (01) ==
LOC: OPMRI 15:36
PROVIDERS: PCP Family Medicine; Referring Provider Family Medicine; Visit Provider Family Medicine
DX: M54.17 Radiculopathy, lumbosacral region (principal)
CPT/HCPCS: 72148